=== PATIENT | male | born 1995 | race Asian ===

== ENCOUNTER 2021-01-11 05:14 | Emergency (ER) | payer OTHER, SELFPAY ==
--- NOTE | 2021-01-11 05:18 | ED.URI ---
HPI - URI/Sore Throat General Chief Complaint: Upper Respiratory Symptoms Stated Complaint: covid symptoms Time Seen by Provider: 01/11/21 05:17 History of Present Illness HPI Narrative: 25-year-old male nonsmoker and otherwise healthy presents with his significant other and a chief complaint of some subjective fever and occasional dry hacking cough over the past day or 2. He is fully vaccinated against COVID but is concerned that his symptoms are consistent with COVID. He does not have any runny nose or sore throat. He denies nausea, vomiting, diarrhea or abdominal pain. He denies exposure to persons with known or suspected COVID. Related Data Allergies Allergy/AdvReac Type Severity Reaction Status Date / Time No Known Drug Allergies Allergy Verified 01/11/21 05:30 Review of Systems Review of Systems Narrative: GENERAL: See HPI HEENT: Denies sinus pain, ear pain, sore throat, difficulty swallowing, dizziness. RESPIRATORY: See HPI CARDIOVASCULAR: Denies chest pain, palpitations, orthopnea, edema, GASTROINTESTINAL: Denies nausea, vomiting, abdominal pain, diarrhea, constipation, melena. : Denies dysuria, frequency, incontinence, hematuria, urinary retention. MUSCULOSKELETAL: denies weakness, joint pain, or bony pain SKIN: Denies rash, skin lesions, or other NEUROLOGIC: Denies weakness, headache, numbness, change in speech, confusion, seizures, incoordination. PSYCHIATRIC: No concerning psychosocial issues. 12 point review of systems is negative except for those stated above Patient History Social History Smoking Status: Never smoker Exam Narrative Exam Narrative: GEN: AOx3 and in mild distress EYES: Pupils are equal, round, and reactive to light and accommodation. Extraoccular muscles are intact bilaterally. There is no subconjunctival hemorrhage or exudate. CHEST: Lungs are clear to auscultation bilaterally and free of wheezes, rales, or rhonchi. No increased work of breathing or use of accessory muscles to suggest respiratory distress Heart rate is regular rhythm, there are no murmurs, clicks, rubs, or gallops. There is no chest wall tenderness. ABD: Abdomen is soft and nontender. There is no guarding or rebound. Bowel sounds are normal in all 4 quadrants. There is no mass or organomegaly. EXT: Full painless ROM of all extremities with no loss of sensation or strength. SKIN: Warm, pink, and dry. No erythema or rash Initial Vital Signs Initial Vital Signs: Vital Signs Temperature 98.2 F 01/11/21 05:25 Pulse Rate 96 H 01/11/21 05:25 Respiratory Rate 19 01/11/21 05:25 Blood Pressure 143/88 H 01/11/21 05:25 Pulse Oximetry 99 01/11/21 05:25 Course Orders Ordered: ED Orders 01/11/21 05:20 COVID19 -Nasal swab/Pre-Proc Stat Vital Signs Vital signs: Vital Signs - 8 hr 01/11/21 05:25 Temperature 98.2 F Pulse Rate 96 H Respiratory Rate 19 Blood Pressure 143/88 H Pulse Oximetry 99 MDM - URI/Sore Throat Lab Data Labs: Lab Results 01/11/21 Range/Units 05:20 SARS-CoV-2 (PCR) Negative (Negative) Discharge Plan Departure Patient Disposition: Home Clinical Impression: Feared complaint without diagnosis Instructions: Can COVID-19 be prevented? Activity Restrictions/Additional Instructions: Viral Upper respiratory infection, COVID swab is NEGATIVE There is no evidence of an emergent or life threatening illness at this time, but follow up with your doctor in 1-2 days is recommended nonetheless to continue to rule out serious underlying causes of your symptoms. Please call the office for an appointment. Please return to the Emergency Department for any worsening or persistent symptoms. Please take medications as directed.
[2021-01-11 05:25] VITALS: BP 143/88; PULSE 96; RESP 19; TEMP 36.8; O2SAT 99
[2021-01-11 05:46] LABS: COVID19 -Nasal RAPID Negative (Negative)
== END 2021-01-11 06:18 | disposition home or self-care (01) ==
PROVIDERS: Emergency Provider Emergency Medicine
DX: R50.9 Fever, unspecified (principal); R05.9 Cough, unspecified; Z20.822 Contact with and (suspected) exposure to COVID-19
CPT/HCPCS: 87635; 99281; C9803